=== PATIENT | female | born 1945 | race Caucasian/White ===

== ENCOUNTER 2019-08-11 11:18 | Inpatient (IN) ==
[2019-08-11] MEDS ORDERED: ZOFRAN IV PRN (12:03)
[2019-08-11] MEDS ORDERED: TYLENOL PO PRN (12:03)
[2019-08-11] MEDS ORDERED: SALINE LOCK IV FLUID XX ONE (12:03)
[2019-08-11 12:41] LABS: BASO# 0.03 X1000 (0.0-0.2)
[2019-08-11] MEDS: PROTONIX IV SCH (12:44)
[2019-08-11 13:02] LABS: ALB/GLOB RATIO 1.6; ALBUMIN 4.5 g/dL (3.5-5.0); CALCIUM 9.7 mg/dL (8.8-10.2); CREATININE 1.3 mg/dL (0.5-0.9); POTASSIUM 5.9 mmol/L (3.5-5.1); TOTAL BILIRUBIN 1.12 mg/dL (0.20-1.00); TOTAL PROTEIN 7.4 g/dL (6.3-8.3)
[2019-08-11] MEDS ORDERED: CATAPRES PO PRN (13:37)
[2019-08-11 14:00] LABS: BASO% 0.4 % (0.0-0.8); EOS# 0.09 X1000 (0.0-0.7); EOS% 1.1 % (0.0-10.0); HEMATOCRIT 43.1 % (37.0-47.0); HEMOGLOBIN 13.7 g/dL (12.0-16.0); LYMPH# 1.75 X1000 (1.2-3.4); LYMPH% 21.4 % (20.5-51.1); MCH 28.6 PG (27-31); MCHC 31.8 g/dL (33-37); MONO% 4.9 % (1.7-9.3); MPV 11.4 FL (7.4-10.4); NEUT# 5.89 X1000 (1.4-6.5); NEUT% 72.2 % (42.2-75.2); PLT 189 X1000 (130-400); RBC 4.79 XMIL (4.2-5.4); RDW 14.6 % (11.5-14.5); WBC 8.16 X1000 (4.8-10.8)
[2019-08-11] MEDS ORDERED: GOLYTELY PO ONE (14:00)
[2019-08-11 14:14] LABS: INR 0.92; PROTIME 12.4 Seconds (11.0-16.0)
--- NOTE | 2019-08-11 14:52 | GASTROENTEROLOGY CONSULTATION ---
DATE: 08/11/2019 CONSULTING PHYSICIAN: Dr. Cade. REASON FOR CONSULT: Lower GI bleed. HISTORY: This is a 73-year-old, white female with a history of breast cancer, status post mastectomy and chemotherapy in 2011. Has been in her usual state of health. She started having some bright red blood per rectum this morning when she went to the bathroom. She has had 2 episodes of bright red blood per rectum. However, she denies any rectal pain or tenderness but has not had any abdominal pain, abdominal cramps, did not have any melena. She did not feel dizzy or lightheaded. Has not had any chest pain, shortness of breath, or palpitations. She carries a diagnosis of atrial fibrillation but she is only on aspirin. She also takes vitamin E and magnesium. She has never had EGD or colonoscopy. She denies any indigestion, heartburn, reflux symptoms. Denies any epigastric pain, nausea, vomiting. Has not had any hematemesis or coffee- grounds emesis. She reports no dysuria, polyuria, or hematuria. Has not had any hemoptysis. PAST MEDICAL HISTORY: Significant for chronic atrial fibrillation. She is on sotalol and well controlled with that. She also has a pacemaker and defibrillator in place. Breast cancer, status post mastectomy and chemotherapy. OTHER SURGERIES: She has had tubal ligation. MEDICATIONS: Prior to hospitalization, she was on aspirin, Lasix, Cozaar, magnesium oxide, Betapace, and Aldactone. ALLERGIES: Claims to be allergic to prednisone. Apparently, she has had pericardial effusion after that. She denies any other allergies. SOCIAL HISTORY: She lives by herself. Does not smoke. Does not drink. Does not do illicit drugs. FAMILY HISTORY: Noncontributory. REVIEW OF SYSTEMS: A per HPI, as above. PHYSICAL EXAMINATION: On examination, a very pleasant, white female. She is lying in bed. She is conscious, alert, appears to be in no distress. Temperature 97.8 degrees, pulse 65 per minute, breathing 20, blood pressure 183/85. She is 142 pounds and she is 5 feet 1 inch tall. Head is atraumatic, normocephalic. Eyes: Conjunctivae are normal. Sclerae are anicteric. Nares are patent. No discharge. Mouth: Mucosa is moist. Throat is normal. Neck: Supple. No lymphadenopathy or thyromegaly. Chest: Bilaterally symmetrical, is moving with respirations. Breath sounds audible bilaterally. No rhonchi or crepitations could be heard. She has a port in her right chest wall. Abdomen is full, soft. Mildly tender in the suprapubic area but no rebound tenderness. No guarding noted. No mass were noted. Bowel sounds are audible. No pedal edema, cyanosis, or clubbing was noted. CORPORATE DEVELOPMENT INTERN: Grossly intact. No sensory or motor deficit. LABORATORY DATA: Labs reviewed which showed WBC of 8.91, hemoglobin 13.9, hematocrit 44.6, MCV 89.4, platelets 170,000. Sodium 140, potassium 5.9, chloride 99, bicarb 27, BUN is 24, creatinine 1.3. AST is 45, total bilirubin 1.12, ALT is normal, alkaline phosphate is normal. IMPRESSION: This 73-year-old, white female who has never had an esophagogastroduodenoscopy or colonoscopy has presented with painless rectal bleeding. High hemoglobin and hematocrit are stable. She is hemodynamically stable. Lower gastrointestinal bleed, painless. Most likely that she has diverticular bleeding or internal hemorrhoid. Rectal exam done by Dr. Cade did not reveal any evidence of external hemorrhoid. PLAN: The plan would be to watch her in the hospital, especially with her cardiac conditions, and recheck hemoglobin and hematocrit, transfuse if necessary. In the meantime, she will be scheduled for endoscopy tomorrow for diagnostic or therapeutic purposes. I have explained my findings and plan to the patient and her son who was present bedside. They understood. All their pertinent questions were answered. cc: MD Edgard Edwards MD
--- NOTE | 2019-08-11 22:52 | HISTORY AND PHYSICAL ---
CHIEF COMPLAINT: Bright red blood in her stool. HISTORY OF PRESENT ILLNESS: The patient is a 73-year-old white female followed in my medical practice. She comes in complaining of a lot of bright red blood in her stool this morning. She has normally some slightly loose bowel movements in the morning, each morning, and today was similar but noted some bright red blood. She has not had that in the past. She has never had EGD or colonoscopy. Denies particular dyspeptic symptoms. Denies any NSAID use. She does take daily aspirin. ALLERGIES: Adhesive and prednisone. PAST MEDICAL HISTORY: 1. Ischemic cardiomyopathy. 2. Coronary artery disease with history of prior stents. 3. Paroxysmal atrial fibrillation. 4. 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 5. History of stage IIB breast cancer. PAST SURGICAL HISTORY: Bilateral tubal ligation. MEDICATIONS: Home medications are Lasix 40 mg p.o. q.a.m., Aldactone 25 mg p.o. q.a.m., sotalol 80 mg p.o. b.i.d., vitamin D3 5000 units p.o. daily, aspirin 81 mg p.o. at bedtime, magnesium oxide 400 mg p.o. daily, losartan 25 mg p.o. daily but she only takes this if her blood pressure is high by her report. FAMILY HISTORY: Noncontributory. SOCIAL HISTORY: The patient lives alone. She is a nonsmoker, nondrinker. REVIEW OF SYSTEMS: Negative except as above. PHYSICAL EXAMINATION: VITAL SIGNS: See chart. GENERAL: Mildly obese white female in no acute distress. PERRLA. EOMI. Sclerae are clear. Oropharynx; no redness. Tongue in the midline. NECK: No LA, TMG, JVD, or bruits. CV: Irregularly irregular. LUNGS: CTA. ABDOMEN: Soft, active bowel sounds. No mass, organomegaly, rebound or guarding. Rectal area was examined well in the office. There was no anal fissure. No external hemorrhoids. Anoscopy was performed and a large amount of maroon blood was seen. Unable to tell if this is related to internal hemorrhoids, as there is a large amount of dark blood in the rectal vault. EXTREMITIES: No calf tenderness, cords or edema. NEUROLOGIC: Cranial nerves 2-12 are intact nonfocal. ASSESSMENT: 1. Hematochezia, pronounced. 2. Chronic aspirin therapy. 3. Coronary artery disease 4. Ischemic cardiomyopathy (ICM). 5. History of breast cancer. 6. Chronic atrial fibrillation on aspirin therapy. PLAN: We will admit the patient to the hospital for 23-hour observation on telemetry. Check labs to include PT, PTT, CMP, CBC, and will ask Dr. Penaloza to see the patient in consultation. Place her on IV PPI. Leave her off her aspirin. Continue her home medications. cc: Edgard Cade MD
[2019-08-11] MEDS: BETAPACE PO SCH (23:36)
[2019-08-12 07:13] LABS: BASO# 0.02 X1000 (0.0-0.2); BASO% 0.3 % (0.0-0.8); EOS# 0.21 X1000 (0.0-0.7); EOS% 3.2 % (0.0-10.0); HEMATOCRIT 34.8 % (37.0-47.0); HEMOGLOBIN 10.8 g/dL (12.0-16.0); LYMPH# 2.03 X1000 (1.2-3.4); LYMPH% 30.9 % (20.5-51.1); MCH 28.1 PG (27-31); MCV 90.6 FL (81-99); MONO# 0.55 X1000 (0.11-0.59); MONO% 8.4 % (1.7-9.3); MPV 11.2 FL (7.4-10.4); NEUT# 3.76 X1000 (1.4-6.5); NEUT% 57.2 % (42.2-75.2); PLT 155 X1000 (130-400); RBC 3.84 XMIL (4.2-5.4); RDW 14.3 % (11.5-14.5); WBC 6.57 X1000 (4.8-10.8)
[2019-08-12 07:32] LABS: AGAP 12; BUN 19 mg/dL (8-22); CALCIUM 8.8 mg/dL (8.8-10.2); CHLORIDE 102 mmol/L (98-107); COSMO 289; CREATININE 1.1 mg/dL (0.5-0.9); ESTIMATED GFR 49; GLUCOSE 95 mg/dL (70-104); POTASSIUM 4.2 mmol/L (3.5-5.1); SODIUM 144 mmol/L (136-145); TCO2 30 mmol/L (25-35)
[2019-08-12 07:44] LABS: DIGOXIN < 0.3 ng/mL (0.9-2.0)
[2019-08-12] MEDS: VITAMIN D PO SCH (09:28)
[2019-08-12] MEDS: LANOXIN PO SCH (09:28)
[2019-08-12] MEDS: LASIX PO SCH (09:28)
[2019-08-12] MEDS: ALDACTONE PO SCH (09:28)
[2019-08-12] MEDS: COENZYME Q10 PO SCH (09:28)
[2019-08-12] MEDS: BETAPACE PO SCH ×2 (09:29→22:31)
[2019-08-12 09:57] LABS: BILIRUBIN URINE NEGATIVE (NEGATIVE); BLOOD URINE NEGATIVE (NEGATIVE); COLOR YELLOW; GLUCOSE URINE NEGATIVE (NEGATIVE); KETONE URINE 10 mg/dL (NEGATIVE); LEUKOCYTES URINE NEGATIVE (NEGATIVE); NITRITE URINE NEGATIVE (NEGATIVE); PROTEIN URINE TRACE mg/dL (NEGATIVE); SP GRAVITY URINE 1.015; TURBIDITY URINE CLEAR (CLEAR); UR EPITHELIAL CELLS <10 /HPF (<10); URINE BACTERIA NEGATIVE /HPF; URINE RBC <10 /HPF (<10); URINE SOURCE CLEAN CATCH; URINE WBC <10 /HPF (<10); UROBILINOGEN URINE NORMAL (NORMAL)
[2019-08-12] MEDS: PROTONIX IV SCH (11:56)
[2019-08-12] MEDS: SODIUM CHLORIDE 0.9% INJ SCH (11:57)
--- NOTE | 2019-08-12 13:28 | PROGRESS NOTE ---
DATE: 08/12/2019 SUBJECTIVE: The patient is sitting up and is comfortable. She is awaiting EGD and colonoscopy per Dr. Penaloza this afternoon. She has had some darker bowel movements. OBJECTIVE: Afebrile. Vital signs stable.CV: RRR. Lungs: Clear. Abdomen: Soft. Nontender and nondistended. Active bowel sounds. Extremities: No calf tenderness, cords or edema. Neurologic: Cranial nerves are intact. No focal deficits. LABORATORY: Hemoglobin has dropped from 10.8 from 13.7. Other labs unremarkable. ASSESSMENT: 1. GI bleed. 2. Anemia related to #1. 3. Ischemic cardiomyopathy. 4. Hypertension. 5. Hyperlipidemia. 6. History of breast cancer. PLAN: For EGD and colonoscopy today per Dr. Penaloza. Continue IV PPI and supportive measures. She is off aspirin at this time. cc: Edgard Cade MD
[2019-08-12] MEDS ORDERED: FENTANYL ONE (14:00)
[2019-08-12] MEDS ORDERED: XYLOCAINE-MPF 2% ONE (14:00)
[2019-08-12] MEDS ORDERED: DIPRIVAN 1% ONE ×2 (14:00→14:59)
[2019-08-12] MEDS ORDERED: EPINEPHRINE SYRINGE ONE (14:45)
--- NOTE | 2019-08-12 15:19 | ENDOSCOPY OPERATIVE NOTE ---
[facility] ENDOSCOPY OPERATIVE NOTE , COLONOSCOPY PROCEDURE REPORT PATIENT NAME: Radha Bravo ADMISSION DATE: 08/12/2019 MR #: [id number] BIRTHDATE: 1945 SURGEON: Naresh Penaloza MD BALLISTIC TECHNICIAN: Denice Chery PROCEDURE DATE: 08/12/2019 STATUS: inpatient INDICATIONS: The patient is a 73 yr old female here for a colonoscopy due to hematochezia and anemia , non-specific. PROCEDURE PERFORMED: Colonoscopy with control of bleeding MEDICATIONS: Per Anesthesia PREP TYPE: GoLytely
--- NOTE | 2019-08-12 15:21 | ENDOSCOPY OPERATIVE NOTE ---
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 PROCEDURE PERFORMED: EGD, diagnostic MEDICATIONS: Per Anesthesia TOPICAL ANESTHETIC: none CONSENT: The patient understands the risks and benefits of the procedure and understands that these r isks include, but are not limited to: sedation, allergic reaction, infection, perforation and/or bleeding. Alternative means of evaluation and treatment include, among others: physical exam, x-rays, and/or surgical intervention. The patient elects to proceed with this endoscopic procedure. HISORY AND PHYSICAL: 08/12/2019 DESCRIPTION OF PROCEDURE: During intra-op preparation period all mechanical and medical equipment was checked for proper function. Hand hygiene and appropriate measures for infection prevention was taken. After the risks, benefits and alternatives of the procedure were thoroughly explained, Informed consent was verified, confirmed and timeout was successfully executed by the treatment team. The patient was anesthetized with topical anesthesia and the Pentax [id number] endoscope was introduced through the mouth and advanced to the second portion of the duodenu m. Retroflexion was performed in the stomach and revealed no abnormalities. The gastroscope was then slowly withdraw n and removed. ESOPHAGUS: The mucosa of the esophagus appeared normal. STOMACH: The mucosa of the stomach appeared normal. DUODENUM: The duodenal mucosa showed no abnormalities. SPECIMENS REMOVED: No ADVERSE EVENTS: There were no complications. POSTOPERATIVE DIAGNOSIS: 1. The mucosa of the esophagus appeared normal 2. The mucosa of the stomach appeared normal 3. The duodenal mucosa showed no abnormalities RECOMMENDATIONS: 1. Avoid non-steroid anti-inflammatory drugs 2. Resume current medications 3. Continue to colonoscopy procedure REPEAT EXAM: Naresh Penaloza MD eSigned: Naresh Penaloza MD 08/12/2019 3:21 PM cc: Edgard Cade MD PATIENT NAME: Radha Bravo MR#: [id number]
[2019-08-13 07:45] LABS: HEMATOCRIT 32.9 % (37.0-47.0); HEMOGLOBIN 10.1 g/dL (12.0-16.0); MCHC 30.7 g/dL (33-37); MCV 91.1 FL (81-99); RBC 3.61 XMIL (4.2-5.4); RDW 14.6 % (11.5-14.5); WBC 5.87 X1000 (4.8-10.8)
[2019-08-13] MEDS: COENZYME Q10 PO SCH (09:53)
[2019-08-13] MEDS: VITAMIN D PO SCH (09:54)
[2019-08-13] MEDS: BETAPACE PO SCH ×2 (09:54→22:04)
[2019-08-13] MEDS: LASIX PO SCH (09:54)
[2019-08-13] MEDS: ALDACTONE PO SCH (09:54)
[2019-08-13] MEDS: LANOXIN PO SCH (09:54)
[2019-08-13] MEDS: SODIUM CHLORIDE 0.9% INJ SCH (12:00)
[2019-08-13] MEDS: PROTONIX IV SCH (12:00)
[2019-08-13 14:57] LABS: HEMATOCRIT 33.4 % (37.0-47.0); HEMOGLOBIN 10.2 g/dL (12.0-16.0)
[2019-08-13] MEDS ORDERED: DIPRIVAN 1% ONE ×2 (16:05→17:24)
[2019-08-13] MEDS ORDERED: XYLOCAINE-MPF 2% ONE (16:06)
[2019-08-13] MEDS ORDERED: FLEET ENEMA PR ONE (16:08)
--- NOTE | 2019-08-13 17:43 | ENDOSCOPY OPERATIVE NOTE ---
[facility] ENDOSCOPY OPERATIVE NOTE , COLONOSCOPY PROCEDURE REPORT EXAM DATE: 08/13/2019 PATIENT NAME: Radha Bravo MR #: [id number] BIRTHDATE: 1945 ENDOSCOPIST: Naresh Penaloza MD STATUS: inpatient LIVESTOCK RANCHER: Sheila Chery and Raquel Edwards INDICATIONS: The patient is a 73 yr old female here for a colonoscopy due to hematochezia and anemia , non-specific. PROCEDURE PERFORMED: Colonoscopy, diagnostic MEDICATIONS: Per Anesthesia PREP TYPE: GoLytely
--- NOTE | 2019-08-13 18:02 | PROGRESS NOTE ---
DATE: 08/13/2019 SUBJECTIVE: Patient overall had been doing well. We went to see her around 1:45 in the afternoon. The patient had noted some dark bowel movement, but had not noticed any bright red blood. I had gone back to my office, and immediately then she had a bowel movement that was bright red in character so we halted the discharge that had been put in due to the fact, and will allow Dr. Penaloza to evaluate again. OBJECTIVE: Vital Signs: Afebrile. Pulse 75, respirations 17, blood pressure 144/70, and O2 saturation room air 99%. CV: RRR. Lungs: Clear. Abdomen: Nontender. Active bowel sounds. Extremities: No calf tenderness, cords, or edema. Neurologic: Cranial nerves 2-12 are intact. Alert and oriented x3. No focal deficits. LABORATORY: White count 5.8, hemoglobin 10.1, down from 10.8 yesterday, and platelets 141,000. Sodium 144, potassium 4.2, chloride 102, CO2 30, BUN 19, creatinine 1.1, glucose 95, and calcium 8.8. ASSESSMENT: 1. Diverticular bleed found per colonoscopy yesterday, now with some recurrent hematochezia. GI blood loss anemia, acute, [id number] stabilizing and around 10.1. 2. Ischemic cardiomyopathy. 3. Hypertension. 4. Hyperlipidemia. 5. History of breast cancer. PLAN: The patient had the colonoscopy yesterday, and had injections around the diverticular area that was thought to be the culprit. Dr. Penaloza is evaluating, and reconsidering a second colonoscopy. Continue to monitor her blood counts. cc: Edgard Cade MD
[2019-08-14 08:03] LABS: BASO# 0.02 X1000 (0.0-0.2); BASO% 0.3 % (0.0-0.8); EOS# 0.18 X1000 (0.0-0.7); EOS% 2.8 % (0.0-10.0); HEMATOCRIT 33.3 % (37.0-47.0); HEMOGLOBIN 10.1 g/dL (12.0-16.0); LYMPH# 1.75 X1000 (1.2-3.4); LYMPH% 27.1 % (20.5-51.1); MCH 27.8 PG (27-31); MCHC 30.3 g/dL (33-37); MCV 91.7 FL (81-99); MONO# 0.56 X1000 (0.11-0.59); MONO% 8.7 % (1.7-9.3); MPV 11.7 FL (7.4-10.4); NEUT# 3.95 X1000 (1.4-6.5); NEUT% 61.1 % (42.2-75.2); PLT 141 X1000 (130-400); RBC 3.63 XMIL (4.2-5.4); RDW 14.6 % (11.5-14.5); WBC 6.46 X1000 (4.8-10.8)
[2019-08-14 08:07] LABS: CALCIUM 8.8 mg/dL (8.8-10.2); CREATININE 1.5 mg/dL (0.5-0.9); POTASSIUM 3.7 mmol/L (3.5-5.1)
[2019-08-14] MEDS: BETAPACE PO SCH ×2 (09:04→23:11)
[2019-08-14] MEDS: LASIX PO SCH (09:04)
[2019-08-14] MEDS: ALDACTONE PO SCH (09:04)
[2019-08-14] MEDS: VITAMIN D PO SCH (09:05)
[2019-08-14] MEDS: COENZYME Q10 PO SCH (09:05)
[2019-08-14] MEDS: PROTONIX IV SCH (12:29)
--- NOTE | 2019-08-14 13:19 | PROGRESS NOTE ---
DATE: 08/14/2019 SUBJECTIVE: Patient stable. She had a solid bowel movement this morning that was encapsulated by some bright red blood. She said she had a repeat colonoscopy last evening with no active bleeding identified, just the diverticulosis. OBJECTIVE: Vital Signs: Afebrile. Vital signs stable. CV: RRR without murmur. Lungs: CTA. Abdomen: Minimal diffuse tenderness. Back: No CVA tenderness. Extremities: No calf tenderness, cords or edema. Neurologic: Cranial nerves 2-12 are intact. Nonfocal. LABORATORY DATA: Hemoglobin is stable at 10.1 since yesterday morning. White count 6.4, platelets 141. Sodium 142, potassium 3.7, chloride 102, CO2 29, BUN normal at 18, creatinine 1.5, calcium 8.8. ASSESSMENT: 1. Probable diverticular bleed. 2. Anemia. Acute gastrointestinal blood loss, stabilized now at 10.1, but with some bright red blood on stool this morning. 3. Ischemic cardiomyopathy. 4. Hypertension. 5. Hyperlipidemia. 6. History of breast cancer. PLAN: She is on a healthy heart diet now and will continue to monitor her stool and ambulate the patient. We will await Dr. Penaloza's recommendation. Possible discharge in the morning, but we will check back on her this evening to make sure she is still doing well. cc: Edgard Cade MD
--- NOTE | 2019-08-14 19:28 | GASTROENTEROLOGY PROGRESS NOTE ---
DATE: 08/14/2019 SUBJECTIVE: Patient was sitting up in a chair in no acute distress. She states she had a bowel movement this morning that had a small amount of blood around the stool. No other bleeding noted today. The patient had EGD and colonoscopy on 08/12/2019. EGD findings showed normal esophagus, normal stomach and normal duodenum. She had a colonoscopy that showed diverticula at the hepatic flexure with an injection to control bleeding. There was severe nonbleeding diverticulosis in the left colon. Exact location of bleeding difficult to see due to blood in the colon. She had a repeat colonoscopy on 08/13/2019 for examination and at that time there was moderate nonbleeding diverticulosis in the left colon with no AVMs or ulcers or tumors noted. Hemoglobin and hematocrit today 10.1 and 33.3. OBJECTIVE: Vital Signs: Temperature 98.7 degrees, pulse 82, respirations 16, blood pressure 135/71. General: Patient is awake and alert, in no acute distress. LABORATORY: Hematology: WBC 6.46, hemoglobin 10.1, hematocrit 33.3, MCV 91.7, platelet 141,000. Chemistry: Sodium 142, potassium 3.7, chloride 102, CO2 29, BUN 18, creatinine 1.5, glucose 107, calcium 8.8. ASSESSMENT AND PLAN: 1. Recent rectal bleeding, most likely diverticular bleeding with injections applied at colonoscopy. Esophagogastroduodenoscopy was normal. 2. Anemia has improved. 3. Cardiomyopathy. 4. Hypertension. 5. Hyperlipidemia. 6. History of breast cancer. PLAN: Continue current medications. Continue PPI. Patient's hemoglobin and hematocrit have improved. Would recommend discharge when appropriate with Dr. Cade. Recommend she follow up with us as an outpatient. I have discussed this case with Dr. Penaloza. Dictated by LENNY Cruz for Naresh Penaloza MD cc: LENNY Ryan MD Stephen W. Harbin, MD
[2019-08-15 07:44] VITALS: BP 150/71
[2019-08-15] MEDS: BETAPACE PO SCH (09:30)
[2019-08-15] MEDS: VITAMIN D PO SCH (09:31)
[2019-08-15] MEDS: COENZYME Q10 PO SCH (09:31)
--- NOTE | 2019-08-15 13:53 | PROGRESS NOTE ---
DATE: 08/15/2019 SUBJECTIVE: The patient doing well, had a bowel movement with no blood that was seen. OBJECTIVE: Afebrile. Vital signs stable.CV: Regular rate and rhythm. Lungs: Clear. Extremities: No edema. Abdomen: Nontender. LABORATORY DATA: Reviewed from yesterday. ASSESSMENT: 1. Diverticular bleed, stable now off aspirin. We will leave her off aspirin at discharge for 2 weeks until she sees me in the office. 2. Anemia stable now after diverticular bleed with hemoglobin of 10.1. 3. Ischemic cardiomyopathy. 4. Hypertension. 5. Hyperlipidemia. 6. History of breast cancer. PLAN: We will discharge patient home. She will be off her aspirin for 2 weeks until she sees me in the office and we will stop magnesium oxide that she had been on daily. She is to otherwise resume her home medications. cc: Edgard Cade MD
== END 2019-08-15 11:16 | disposition home or self-care (01) | DRG 378 ==
LOC: DIRADM → EDIPHOLD 11:18 → 4N 14:09
PROVIDERS: ADMIT Family Medicine; ATTEND Family Medicine